=== PATIENT | male | born 1955 | race Caucasian/White ===

== ENCOUNTER 2023-02-25 09:22 | Observation (INO) | payer OTHER ==
[2023-02-25 12:02] LABS: BASO % 0.7 % (0-2.0); EOS % 1.5 % (0-4.5); HEMATOCRIT 39.8 % (35.4-49); HEMOGLOBIN 13.4 GM/dL (11.7-16.9); LYMPH % 38.8 % (8-40); MCH 28.1 pg (25.7-33.7); MCHC 33.7 g/dl (32.0-35.9); MEAN CELL VOLUME 83.4 fl (80-96); MEAN PLT VOLUME 9.9 fl (7.5-11.1); MONO % 8.7 % (3.8-10.2); NEUT % 50.3 % (42.8-82.8); PLATELET COUNT 181 10^3/uL (134-434); RBC 4.78 M/mm3 (4.00-5.60); RDW 14.7 % (11.9-15.9); WHITE BLOOD COUNT 5.9 K/mm3 (4.0-10.0)
[2023-02-25 12:07] LABS: INR 0.96 (0.83-1.09); PROTHROMBIN TIME (PATIENT) 11.1 SEC (9.7-13.0)
[2023-02-25 12:23] LABS: CALCIUM 8.7 mg/dL (8.5-10.1)
[2023-02-25 12:24] LABS: ALBUMIN 3.6 g/dl (3.4-5.0); BLOOD UREA NITROGEN 18.8 mg/dL (7-18)
[2023-02-25 12:27] LABS: CREATININE 1.3 mg/dL (0.55-1.3)
[2023-02-25 12:28] LABS: BILIRUBIN,TOTAL 0.4 mg/dL (0.2-1); TOT PROT 7.7 g/dl (6.4-8.2)
[2023-02-25] MEDS ORDERED: LABETALOL HCL 5 MG/1 ML (100MG/20 ML VIAL) IVPUSH ONE (13:21)
[2023-02-25] MEDS ORDERED: LABETALOL HCL 20 MG/4 ML VIAL ONE (13:29)
[2023-02-25] MEDS ORDERED: hydrALAZINE HCL 20 MG/ML VIAL IVPUSH ONE (13:29)
[2023-02-25] MEDS ORDERED: hydrALAZINE HCL 20 MG/ML VIAL ONE (13:30)
[2023-02-25] MEDS ORDERED: NIFEdipine E.R. 30 MG TABLET PO SCH (14:00)
[2023-02-25] MEDS: ASPIRIN COATED 81 MG TABLET.EC PO SCH (16:26)
[2023-02-25 16:51] VITALS: BMI 35.6
[2023-02-25] MEDS ORDERED: hydrALAZINE HCL 20 MG/ML VIAL IVPUSH PRN (17:53)
[2023-02-25] MEDS ORDERED: NIFEdipine E.R. 30 MG TABLET PO ONE (18:00)
[2023-02-25] MEDS: HEPARIN NA (PORCINE) 5,000 UNITS/ML 1ML VIAL SQ SCH (21:47)
[2023-02-25] MEDS ORDERED: ATORVASTATIN CA 40 MG TABLET (FP) PO SCH (22:00)
[2023-02-26] MEDS ORDERED: LEVOTHYROXINE NA 75 MCG TABLET (FP) PO SCH (07:00)
[2023-02-26 08:10] LABS: BASO % 0.7 % (0-2.0); EOS % 2.5 % (0-4.5); HEMATOCRIT 40.2 % (35.4-49); HEMOGLOBIN 13.7 GM/dL (11.7-16.9); LYMPH % 31.9 % (8-40); MCH 28.4 pg (25.7-33.7); MCHC 34.2 g/dl (32.0-35.9); MEAN PLT VOLUME 10.4 fl (7.5-11.1); MONO % 8.9 % (3.8-10.2); PLATELET COUNT 173 10^3/uL (134-434); RBC 4.85 M/mm3 (4.00-5.60); RDW 14.9 % (11.9-15.9); WHITE BLOOD COUNT 6.6 K/mm3 (4.0-10.0)
[2023-02-26 08:27] LABS: BLOOD UREA NITROGEN 18.1 mg/dL (7-18); CALCIUM 8.9 mg/dL (8.5-10.1)
[2023-02-26 08:30] LABS: CREATININE 1.2 mg/dL (0.55-1.3)
[2023-02-26] MEDS ORDERED: NIFEdipine E.R. 30 MG TABLET PO SCH ×2 (10:00→11:15)
[2023-02-26] MEDS: HEPARIN NA (PORCINE) 5,000 UNITS/ML 1ML VIAL SQ SCH (10:05)
[2023-02-26] MEDS: ASPIRIN COATED 81 MG TABLET.EC PO SCH (10:06)
[2023-02-26] MEDS ORDERED: LEVOTHYROXINE NA 25 MCG TABLET (FP) PO ONE (11:04)
[2023-02-26 11:34] LABS: MAGNESIUM 2.1 mg/dL (1.8-2.4)
[2023-02-26 11:38] LABS: PHOSPHOROUS 3.3 mg/dL (2.5-4.9)
[2023-02-26 14:49] VITALS: RESP 20
[2023-02-26 18:40] VITALS: BP 157/86; PULSE 71; TEMP 97.5
[2023-02-26] MEDS ORDERED: LABETALOL HCL 200 MG TABLET (FP) PO SCH (22:00)
[2023-02-27] MEDS ORDERED: LEVOTHYROXINE NA 100 MCG TABLET (FP) PO SCH (07:00)
[2023-02-27] MEDS ORDERED: LISINOPRIL 10 MG TABLET PO SCH (10:00)
== END 2023-02-26 21:28 | disposition home or self-care (01) ==
LOC: JER 09:22 → INTOOBSV 13:30 → JERBED 13:30 → J4W 16:08
PROVIDERS: ADMIT Internal Medicine; ATTEND Internal Medicine
PROC: 3E033GC Introduction of Other Therapeutic Substance into Peripheral Vein, Percutaneous Approach (ICD-10-PCS; principal; 2023-02-25)
PROC: 3E013GC Introduction of Other Therapeutic Substance into Subcutaneous Tissue, Percutaneous Approach (ICD-10-PCS; 2023-02-25)
DX: I16.0 Hypertensive urgency (principal); R26.81 Unsteadiness on feet; R94.6 Abnormal results of thyroid function studies; E03.9 Hypothyroidism, unspecified
CPT/HCPCS: 36415; 70450-TC; 70551-TC; 71045-TC-FY; 80048; 80053; 80061; 82550; 82553; 83036; 83735; 84100; 84439; 84443; 84481; 84484; 85025; 85610; 86376; 86800; 93005; 93010; 93306-TC; 93880-TC; 96372; 96374; 97116-GP; 97161-GP; 99285-25; C9803-CS; G0378; J1644; U0003; U0005